=== PATIENT | male | born 1970 | race Caucasian/White ===

== ENCOUNTER → 2018-07-29 | Outpatient (CLI) | payer BC ==
--- NOTE | 2018-07-29 14:52 | PCVCIMAG ---
APPROVED REPORT Study performed: 07/29/2018 13:11:00 Exam: Stress Echocardiogram Indication: chest pain, Family hx of premature CAD Patient Location: Echo lab Stress Nurse: Keila Ochoa RN Status: routine Ht: 6 ft 0 in HR: 71 bpm BP: 130/90 mmHg Rhythm: NSR Procedure The patient underwent an Exercise Stress Test using the Harsh Protocol. Blood pressure, heart rate, and EKG were monitored. An Echocardiogram was performed by cogeneration technician in four stages in quad fashion. At peak stress, four selected images were obtained and placed side by side with resting images for comparison. Stress Test Details Stress Test: Exercise stress testing was performed using a Harsh protocol. HR Resting HR: 71 bpmMax Heart Rate (APMHR): 173 bpm Max HR Achieved: 181 bpmTarget HR (85% APMHR): 147 bpm % of APMHR: 104 Recovery HR: 93 bpm HR response to stress: Normal HR response to stress BP Resting BP: 130/90 mmHg Max BP: 210/100 mmHg Recovery BP: 150/100 mmHg BP response to stress: Normal blood pressure response to stress. ECG Resting ECG: Sinus Rhythm Stress ECG: Sinus Rhythm Recovery ECG: Sinus Rhythm Clinical Reason for Termination: Maximal effort Exercise duration: 9 min sec Highest Stage Achieved: Stage 4: 4.2 mph at 16% grade. Exercise capacity: 10.40 METs Overall Exercise Capacity for Age: Good Pre-Stress Echo The resting Echocardiogram showed normal left ventricular contractility with an estimated Ejection Fraction of about 55-60%. Normal wall motion in all segments on baseline images. Post-Stress Echo The stress Echocardiogram showed normal left ventricular contractility with an estimated Ejection Fraction of about 60-65%. Normal augmentation of wall motion in all segments on post stress images. Clinical No clinical or ECG evidence for ischemia. Conclusion Clinical Response: Non-ischemic Exercise Capacity: Average Stress ECG Response: Non-ischemic Stress Echo Images: Non-ischemic Mild left ventricular hypertrophy. Other Information Study Quality: Adequate <Conclusion> Mild left ventricular hypertrophy.
== END | disposition home or self-care (01) ==
LOC: PCVCIMAG 12:49
PROVIDERS: ATTEND Internal Medicine Cardiovascular Disease
DX: R07.9 Chest pain, unspecified (principal); Z82.49 Family history of ischemic heart disease and other diseases of the circulatory system
CPT/HCPCS: 93325; 93351